=== PATIENT | male | born 1985 | race Caucasian/White ===

== ENCOUNTER 2020-06-23 12:25 | Emergency (ER) | payer SELFPAY ==
[~2020-06-23] VITALS: Ht 170.2 cm; Wt 74.4 kg
[2020-06-23 12:32] VITALS: BP 131/83
--- NOTE | 2020-06-23 13:06 | NUR ---
patient seen and evaluated by dr tran. daisy si/hi. provided w/ clothes and food. discharge home in stable condition.
== END 2020-06-23 13:10 | disposition home or self-care (01) ==
LOC: ER 12:27
DX: F15.10 Other stimulant abuse, uncomplicated (principal); R00.0 Tachycardia, unspecified